=== PATIENT | female | born 1985 | race Caucasian/White ===

== ENCOUNTER 2020-08-14 15:45 | Outpatient (CLI) | payer OTHER, SELFPAY ==
[2020-08-14 19:44] LABS: Hepatitis B Surface Antigen Negative (Negative)
[2020-08-14 20:02] LABS: Hepatitis C Virus Antibody Negative (Negative)
[2020-08-15 07:43] LABS: Rapid Plasma Reagin Non-Reactive (NonReactive)
== END 2020-08-14 15:46 | disposition home or self-care (01) ==
PROVIDERS: Visit Provider Student in an Organized Health Care Education/Training Program
DX: Z20.2 Contact with and (suspected) exposure to infections with a predominantly sexual mode of transmission (principal)
CPT/HCPCS: 36415; 86592; 86803; 87340

== ENCOUNTER 2021-03-20 11:17 | Outpatient (CLI) | payer OTHER, SELFPAY ==
[2021-03-20 19:36] LABS: HIV 1/2 Ab P24 Ag Result Negative (Negative)
[2021-03-20 19:44] LABS: Hepatitis C Virus Antibody Negative (Negative)
[2021-03-21 09:27] LABS: Rapid Plasma Reagin Non-Reactive (NonReactive)
[2021-03-25 04:26] LABS: Hepatitis Be Antigen Nonreactive
== END 2021-03-20 11:18 | disposition home or self-care (01) ==
LOC: ANHBWCLAB 11:20
PROVIDERS: Visit Provider Student in an Organized Health Care Education/Training Program
DX: Z20.2 Contact with and (suspected) exposure to infections with a predominantly sexual mode of transmission (principal)
CPT/HCPCS: 36415; 86592; 86703; 86803; 87350; G0432